=== PATIENT | female | born 1980 | race Caucasian/White ===

== ENCOUNTER → 2016-11-22 | Outpatient (REF) | payer OTHER | LOC: M SFHCCAPE 10:56 | PROVIDERS: ATTEND Physician Assistant | DX: L29.3 Anogenital pruritus, unspecified (principal) ==

== ENCOUNTER → 2017-01-25 | Outpatient (REF) | payer OTHER | LOC: M SFHCCAPE 10:14 | PROVIDERS: ATTEND Physician Assistant | DX: N89.8 Other specified noninflammatory disorders of vagina (principal) ==

== ENCOUNTER → 2020-01-01 | Outpatient (REF) | payer OTHER ==
[2020-01-01 17:11] LABS: BASO # 0.1 10^3/uL (0.0-0.2); BASO % 0.9 % (0.0-1.0); EOS # 0.1 10^3/uL (0.0-0.5); EOS % 0.9 % (0.0-3.0); HEMATOCRIT 42.7 % (36.0-47.0); HEMOGLOBIN 14.7 g/dl (12.0-15.5); LYMPH # 1.9 10^3/uL (1.5-5.0); LYMPH % 20.2 % (24.0-44.0); MEAN CORPUSCULAR HEMOGLOBIN 34.3 pg (27.0-33.0); MEAN CORPUSCULAR HGB CONC 34.4 g/dl (32.0-36.5); MEAN CORPUSCULAR VOLUME 99.8 fl (80.0-96.0); MONO # 0.5 10^3/uL (0.0-0.8); MONO % 5.5 % (0.0-5.0); NEUTROPHILS # 6.6 10^3/uL (1.5-8.5); NEUTROPHILS % 72.2 % (36.0-66.0); PLATELET COUNT, AUTOMATED 328 10^3/uL (150-450); RED BLOOD COUNT 4.28 10^6/uL (4.00-5.40); WHITE BLOOD COUNT 9.2 10^3/uL (4.0-10.0)
[2020-01-01 17:36] LABS: ALT/SGPT 30 U/L (12-78); BILIRUBIN,TOTAL 0.3 MG/DL (0.2-1.0); BLOOD UREA NITROGEN 13 MG/DL (7-18); CALCIUM LEVEL 9.2 MG/DL (8.5-10.1); CARBON DIOXIDE LEVEL 24 MEQ/L (21-32); CHLORIDE LEVEL 109 MEQ/L (98-107); CHOLESTEROL LEVEL 200 MG/DL (<200); CHOLESTEROL RISK RATIO 5.263 (<5); CREATININE FOR GFR 0.74 MG/DL (0.55-1.30); FREE T4 1.01 NG/DL (0.76-1.46); GLOMERULAR FILTRATION RATE > 60.0 (>58); GLUCOSE, FASTING 103 MG/DL (70-100); HDL CHOLESTEROL 38 MG/DL (>40); LDL CHOLESTEROL 129 MG/DL (<100); NON-HDL-C 162 MG/DL; POTASSIUM SERUM 4.7 MEQ/L (3.5-5.1); SODIUM LEVEL 141 MEQ/L (136-145); THYROID STIMULATING HORMONE 0.878 uIU/ML (0.358-3.740); TOTAL PROTEIN 6.9 GM/DL (6.4-8.2); TRIGLYCERIDES LEVEL 167 MG/DL (<150)
[2020-01-01 17:37] LABS: TOTAL 25(OH) VITAMIN D 24.4 NG/ML (30.0-100.0); VITAMIN B12 LEVEL 422 PG/ML (247-911)
[2020-01-01 17:54] LABS: HEMOGLOBIN A1c 5.1 %
== END ==
LOC: M LABDRAWC 11:10
PROVIDERS: ATTEND Physician Assistant
DX: F41.9 Anxiety disorder, unspecified (principal); Z13.6 Encounter for screening for cardiovascular disorders; L60.8 Other nail disorders